=== PATIENT | male | born 1965 ===

== ENCOUNTER 2016-12-28 11:12 | Emergency (ER) | payer MEDICAID ==
[2016-12-28 11:18] VITALS: BP 151/88; PULSE 80; TEMP 97; O2SAT 100; BMI 32.5
--- NOTE | 2016-12-28 12:32 | ED PDOC ---
HPI: General Adult Time Seen by Provider: 12/28/16 11:52 Chief Complaint (Nursing): Back Pain Chief Complaint (Provider): Back Pain History Per: Patient History/Exam Limitations: no limitations Onset/Duration Of Symptoms: Days (x 2) Current Symptoms Are (Timing): Constant Additional Complaint(s): Caleb is a 51 year old male with a past medical history of arthritis who presents to the Emergency Department complaining of right low back pain x 2 days. Patient states pain radiates to the back of the right leg and is constant. Denies Trauma, heavy lifting, paraesthesia, and weakness. PMD: Ke Avelar Past Medical History Reviewed: Historical Data, Nursing Documentation, Vital Signs Vital Signs: Last Vital Signs Temp 97 F L 12/28/16 11: Pulse 80 12/28/16 11:17 Resp BP 151/88 H 12/28/16 11:17 Pulse Ox 100 12/29/16 16:56 - Medical History PMH: Arthritis, HTN - Surgical History Surgical History: No Surg Hx - Family History Family History: States: Unknown Family Hx - Immunization History Hx Tetanus Toxoid Vaccination: No Hx Influenza Vaccination: Yes (oct 2016) Hx Pneumococcal Vaccination: No - Home Medications Home Medications: Ambulatory Orders Medication Instructions Recorded Cyclobenzaprine [Cyclobenzaprine 10 mg PO TID PRN #15 tab 12/28/16 HCl] Naproxen [Naprosyn] 500 mg PO BID PRN #15 tablet 12/28/16 - Allergies Allergies/Adverse Reactions: Allergies Allergy/AdvReac Type Severity Reaction Status Date / Time No Known Allergies Allergy Verified 12/28/16 11:56 Review of Systems ROS Statement: Except As Marked, All Systems Reviewed And Found Negative Constitutional: Negative for: Weakness, Other (heavy lifting) Musculoskeletal: Positive for: Back Pain, Leg Pain, Other (Pain radiates from right low back pain to the back of the right pain) Physical Exam - Reviewed Nursing Documentation Reviewed: Yes Vital Signs Reviewed: Yes - Physical Exam Appears: Negative for: No Acute Distress Skin: Positive for: Normal Color, Warm, Dry Cardiovascular/Chest: Positive for: Regular Rate, Rhythm Respiratory: Positive for: Normal Breath Sounds. Negative for: Respiratory Distress Back: Positive for: Normal Inspection, Other (R lower paralumbar tenderness). Negative for: L CVA Tenderness, R CVA Tenderness Extremity: Positive for: Normal ROM. Negative for: Tenderness, Calf Tenderness , Deformity, Swelling, Other ((-) straight leg) Neurologic/Psych: Positive for: Alert, Oriented, Gait (WNL). Negative for: Motor/Sensory Deficits - ECG O2 Sat by Pulse Oximetry: 100 (RA) Pulse Ox Interpretation: Normal Medical Decision Making Medical Decision Making: Time: 12:04 Impressions: Low Back Pain Initial Plan: - Lumbar Spine X-Ray - Flexeril 10 mg PO - Toradol - 30 mg IM - Urinalysis Time: 14:08 Lumbar Spine X-Ray FINDINGS: BONES: Normal alignment. No listhesis. No fracture. No destructive bony lesion identified. DISC SPACES: Mild multilevel lumbar spondylosis seen worst at the mid cervical spine. OTHER FINDINGS: None. IMPRESSION: Limited multilevel mid lumbar spondylosis without fracture or spondylolisthesis. Mild multilevel lumbar spondylosis. Scribe Attestation: Documented by Josh Javier, acting as a scribe for Nelida Thomas MD Provider Scribe Attestation: All medical record entries made by the Scribe were at my direction and personally dictated by me. I have reviewed the chart and agree that the record accurately reflects my personal performance of the history, physical exam, medical decision making, and the department course for this patient. I have also personally directed, reviewed, and agree with the discharge instructions and disposition. Disposition - Clinical Impression Clinical Impression: Lumbar spondylosis - Disposition Referrals: [facility] [Outside] Disposition: Routine/Home Disposition Time: 15:24 Condition: STABLE Prescriptions: Cyclobenzaprine [Cyclobenzaprine HCl] 10 mg PO TID PRN #15 tab PRN Reason: Pain Naproxen [Naprosyn] 500 mg PO BID PRN #15 tablet PRN Reason: Pain, Moderate (4-7) Instructions: Acute Low Back Pain (ED) Forms: [employer] (formerly [employer]) (Luxembourgish) Print Language: JORDANIAN
--- NOTE | 2016-12-28 14:10 | RAD ---
PROCEDURE: Radiographs of the Lumbar Spine. HISTORY: R low back pain COMPARISON: No prior. FINDINGS: BONES: Normal alignment. No listhesis. No fracture. No destructive bony lesion identified. DISC SPACES: Mild multilevel lumbar spondylosis seen worst at the mid cervical spine. OTHER FINDINGS: None. IMPRESSION: Limited multilevel mid lumbar spondylosis without fracture or spondylolisthesis. Mild multilevel lumbar spondylosis.
[2016-12-28 14:11] LABS: RBC URINE 1 /hpf (0-3); URINE BILIRUBIN NEGATIVE (NEGATIVE); URINE BLOOD NEGATIVE (NEGATIVE); URINE COLOR YELLOW (YELLOW); URINE GLUCOSE (UA) NEG (Normal); URINE KETONE NEGATIVE (NEGATIVE); URINE LEUKOCYTE ESTERASE NEG Leu/uL (Negative); URINE PROTEIN NEGATIVE (NEGATIVE); URINE UROBILINOGEN 0.2-1.0 mg/dL (0.2-1.0); WBC URINE 1 /hpf (0-5)
[2016-12-28] MEDS ORDERED: Lidocaine 5% Patch TD STA (15:31)
[2016-12-28] MEDS ORDERED: Lidocaine 5% Patch TD ONE (15:44)
== END 2016-12-28 16:29 | disposition home or self-care (01) ==
LOC: H.ER 11:12
DX: M47.817 Spondylosis without myelopathy or radiculopathy, lumbosacral region (principal); I10 Essential (primary) hypertension
CPT/HCPCS: 72114; 81003; 96372; 99282; J1885